=== PATIENT | female | born 1965 | race Hispanic/Latino ===

== ENCOUNTER 2019-02-14 14:36 | Emergency (ER) | payer SELFPAY ==
[2019-02-14] MEDS ORDERED: Fluorescein Opthalmic Strip ONE (15:04)
[2019-02-14] MEDS ORDERED: Proparacaine 0.5% Opth 15 ML BOT ONE (15:04)
== END 2019-02-14 15:47 | disposition home or self-care (01) ==
LOC: SCSER 14:36
DX: B02.9 Zoster without complications (principal); I10 Essential (primary) hypertension; F41.0 Panic disorder [episodic paroxysmal anxiety]
CPT/HCPCS: 99282

== ENCOUNTER 2022-01-19 12:09 | Emergency (ER) | payer SELFPAY ==
[2022-01-19] MEDS ORDERED: PROPOFOL 0 ML ONE (12:40)
[2022-01-19] MEDS ORDERED: Fentanyl 100 MCG/2 ML VIAL ONE (12:40)
[2022-01-19] MEDS ORDERED: PROPOFOL 20 ML ONE ×2 (13:58→14:31)
== END 2022-01-19 14:50 | disposition home or self-care (01) ==
LOC: ERS 12:09
DX: S43.014A Anterior dislocation of right humerus, initial encounter (principal); X50.0XXA Overexertion from strenuous movement or load, initial encounter
CPT/HCPCS: 23650; 96374; 99152; 99153; J2704; J3010